=== PATIENT | female | born 1935 | race Caucasian/White ===

== ENCOUNTER 2016-06-28 13:10 | Outpatient (CLI) | payer OTHER, BC ==
[~2016-06-28 13:10] MED LIST: COUMADIN1 MG PO; DONEPEZIL HCL5 M1 PO; LORAZEPAM1 MG PO; LOVENOX100 MG/ML SC; LOVENOX40 MG/0.4 SC; MULTIPLE VITAMIN PO; NORCO1 TA1 PO; OMEPRAZOLE20 M1 PO; PAROXETINE HCL10 MG PO; PRINIVIL5 MG PO; SIMVASTATIN20 MG PO; VICODIN EQUIVAL1 TAB PO
--- NOTE | 2016-06-28 13:56 | DIAGNOSTIC IMAGING REPORT ---
PROCEDURE: CT LUMBAR SPINE W/O CONTRAST INDICATION: LUMABAR RADICULOPATHY L-5, initial encounter TECHNIQUE: Noncontrast axial images with sagittal and coronal reformations. COMPARISON: Lumbar spine x-ray 02/09/2016 FINDINGS: Osteopenia. L4-5 and L5-S1 laminectomies. Partially sacralized L5. Normal alignment without acute fracture. Left L4 inferior 1.2 x 2.3 cm bony protrusion with corresponding erosion of the left L5 superior vertebral body resulting in severe degenerative changes. There are also severe L3-4 degenerative changes. There is a 50% central L4 chronic compression fracture. Left SI joint degenerative changes. Surgical clips in the right lower quadrant. L1-2: Normal disc. Mild facet arthropathy. L2-3: Mild disc space narrowing with moderate circumferential disc protrusion, moderate facet arthropathy and thickening of the ligament flava. There is mild right and moderate left foraminal stenosis. There is also moderate spinal stenosis. L3-4: Severe disc space narrowing with a large broad-based disc protrusion/spur complex and moderate facet arthropathy. There is thickening of the ligament flava. There is bilateral moderately severe foraminal stenosis and severe spinal stenosis. L4-5: Laminectomy. Severe space narrowing with mild broad-based disc bulge/spur complex and mild facet arthropathy. There is resulting moderate bilateral foraminal stenosis. There is no spinal stenosis. L5-S1: Left laminectomy. Normal disc and mild facet arthropathy. Moderate bilateral foraminal stenosis secondary to bony encroachment. No spinal stenosis. IMPRESSION: 1. Severe disc and vertebral degenerative changes most prominent at L3-4 and L4-5 2. Partially sacralized L5 with L4-5 and L5 laminectomies 3. Moderate L2-3 and severe L3-4 spinal stenosis 4. L2-3 disc protrusion with mild right and moderate left foraminal stenosis 5. Large L3-4 disc protrusion with bilateral moderately severe foraminal stenosis 6. Mild L4-5 disc bulge with moderate bilateral foraminal stenosis 7. Moderate bilateral foraminal stenosis secondary to bony encroachment moderate 8. Chronic 50% central L4 compression fracture 9. Left SI joint degenerative changes All CT scans at this facility use dose modulation, iterative reconstruction, and/or weight-based dosing when appropriate to reduce radiation dose to as low as reasonably achievable.
== END 2016-06-28 23:00 ==
LOC: CT SRH 13:10
DX: M51.36 Other intervertebral disc degeneration, lumbar region (principal); M48.06 Spinal stenosis, lumbar region; M47.816 Spondylosis without myelopathy or radiculopathy, lumbar region; S32.040S Wedge compression fracture of fourth lumbar vertebra, sequela; Z98.1 Arthrodesis status

== ENCOUNTER 2016-09-09 11:01 | Emergency (ER) | payer OTHER, BC ==
--- NOTE | 2016-09-09 13:12 | DIAGNOSTIC IMAGING REPORT ---
PROCEDURE: XR RIBS UNILAT W/PA CHEST-LT INDICATION: FALL TECHNIQUE: Two views of the left ribs with single PA view chest. COMPARISON: None. FINDINGS: LEFT RIBS: No displaced rib fractures. No suspicious rib lesions. CHEST: Normal cardiomediastinal contour. Clear lungs without pleural effusion, pneumothorax, or contusion. The other visible osseous structures are intact. IMPRESSION: 1. Intact left ribs. 2. Normal chest without radiographic evidence of trauma.
--- NOTE | 2016-09-09 13:12 | ED CLINICAL REPORT ---
Clinical Report - Physicians/Mid Levels [facility] [address] [place] [address] 09/09/2016 11:01 Patient: NICHOLAS KNOWLES Time Seen: 11:44. Arrived- By ambulance. Historian- patient and EMS personnel. HISTORY OF PRESENT ILLNESS Chief Complaint: FALL. Location of injuries- left hip. The injury occurred unknown time/date; daughter states she does not believe the pt had a fall, and that pt has a h/o chronic L hip pain. Fell. Occurred at home. The patient complains of moderate pain. No blow to the head, neck pain, loss of consciousness or seizure. Not dazed. REVIEW OF SYSTEMS The patient complains of pain on weight bearing. (chronically). No numbness, dizziness, loss of vision, hearing loss or chest pain. No difficulty breathing, weakness, headache, nausea or abdominal pain. No laceration, fever, vomiting or urinary problems. All systems otherwise negative, except as recorded above. PAST HISTORY Problems: DVT - Deep Venous Thrombosis. Fall. Gastroesophageal Reflux. LNMP - Last Normal Menstrual Period. Dementia. Hyperlipidemia. Dislocated Hip. Tetanus Status. Immunizations. Hypertension. Depression. Chronic L hip pain. Anxiety Reaction. Cancer. Additional Surgeries: Back Surgery. Left hip replacement. Neck Surgery. Port-a-Cath placement. R hip replacement. Medications: Donepezil 10 mg q.h.s.. Donepezil HCl Oral (Tablet 5 mg) 2 tablets, daily. Hydrocodone-Acetaminophen Oral. Lisinopril 5 mg daily. Lisinopril Oral (Tablet 5 mg) 1 tablet, daily. Lorazepam 1 mg bid. LORazepam Oral 1 mg, 2x a day. Lovenox Subcutaneous. Multi Vitamin Daily Oral. Multivitamin 1 tablet daily. Omeprazole 20 mg 1 cap daily. Omeprazole Oral 20 mg, daily. Paroxetine 40 mg daily. PARoxetine HCl Oral (Tablet 40 mg) 1 tablet. Simvastatin Oral 20 mg, at bedtime. Smvastatin 20 mg daily. Warfarin Sodium Oral. Allergies: No Known Drug Allergy. SOCIAL HISTORY Never smoker. No alcohol use or drug use. ADDITIONAL NOTES The nursing notes have been reviewed. PHYSICAL EXAM Vital Signs: 09/09/2016 11:05 BP: 120/63. HR: 48. RR: 22. O2 saturation: 99%. Temp: 97.8 F. Pain level now: 03/18. Have been reviewed. Appearance: Alert. No acute distress. Head: Head non-tender. No swelling of head. Eyes: Pupils equal, round and reactive to light. EOM intact. ENT: No dental injury. Neck: Painless ROM. Non-tender. CVS: Heart sounds normal. Pulses normal. Respiratory: No respiratory distress. Chest wall: mild tenderness located in the middle, lower, left and lateral chest. No erythema, puncture wound, foreign body or deformity. No swelling. No laceration. No abrasion. No ecchymosis. No splinting present. No paradoxical movement. Breath sounds normal. Chest nontender. Abdomen: No visible injury. Soft and nontender. Back: No tenderness. Skin: Skin intact. Skin warm and dry. Normal skin color. Normal skin turgor. Extremities: Pelvis stable. Left hip: mild tenderness located in the lateral aspect of the hip. Neurovascular intact distally. No erythema, swelling, laceration, abrasion or ecchymosis. No puncture wound, foreign body or deformity. No limitation in ROM. The left leg is not shortened, externally rotated, internally rotated, flexed or adducted. The left leg is not abducted. No lower extremity edema. Neuro: No motor deficit. No sensory deficit. (Pt answers questions appropriately.). LABS, X-RAYS, AND EKG Sternum / Ribs X-rays: No fracture present. Normal lung markings present. Soft tissues normal. No bony lesion present. Views: left ribs. AP of chest. Technique: good. The X-rays were independently viewed by me, interpreted by the radiologist and contemporaneously by me and discussed with the radiologist. Prior films were not available for comparison. Lt Hip X-ray: No fracture. Normal alignment. No bony lesion, air in the soft tissue or foreign body. Soft tissues normal. Joint spaces normal. (Pt has a L hip prosthesis, which appears in good placement.). Views: 2 view hip series. Technique: good. The X-rays were independently viewed by me, interpreted by the radiologist and contemporaneously by me and discussed with the radiologist. Prior films were not available for comparison. Pulse Oximetry: 09/09/2016 11:05 O2 saturation: 99%. (FIO2 - room air). Interpretation: normal. PROGRESS AND PROCEDURES Course of Care: Pt was given a dose of Toradol, and worked up with x-rays of the L ribs and hip, as well as the pelvis. No acute traumatic changes were noted. No emergent condition identified. Patient counseled in person regarding the patient's stable condition, test results, diagnosis and need for follow-up. Concerns were addressed. Old medical records reviewed. Disposition: Discharged. Condition: stable. CLINICAL IMPRESSION Multiple contusions to the left chest and left hip. INSTRUCTIONS Warnings: GENERAL WARNINGS: Return or contact your physician immediately if your condition worsens or changes unexpectedly, if not improving as expected, or if other problems arise. Your Current Medications: CONTINUE TAKING THE FOLLOWING MEDICATIONS: Donepezil 10 mg q.h.s.*. Donepezil HCl Oral : Tablet 5 mg, 2 tablets daily. Hydrocodone-Acetaminophen Oral. Lisinopril 5 mg daily*. Lisinopril Oral : Tablet 5 mg, 1 tablet daily. Lorazepam 1 mg bid*. LORazepam Oral : 1 mg 2x a day. Lovenox Subcutaneous. Multi Vitamin Daily Oral. Multivitamin 1 tablet daily*. Omeprazole 20 mg 1 cap daily*. Omeprazole Oral : 20 mg daily. Paroxetine 40 mg daily*. PARoxetine HCl Oral : Tablet 40 mg, 1 tablet. Simvastatin Oral : 20 mg at bedtime. Smvastatin 20 mg daily*. Warfarin Sodium Oral. Prescription Medications: Tylenol with Codeine Tylenol #3 (30 mg / 300 mg) : take 1 tablet orally every 4 hours. Dispense fifteen (15). No refill. Substitution is permissible. Follow-up: Follow up with your doctor as needed. Understanding of the discharge instructions verbalized by patient. (Electronically signed by Lindsey Rudolph MD 09/18/2016 21:32)
--- NOTE | 2016-09-09 13:12 | ED NURSING NOTES ---
Clinical Report - Nurses [facility] [address] [place] [address] 09/09/2016 11:01 Patient: NICHOLAS KNOWLES TRIAGE Triage time 1105. Acuity: LEVEL 3. Chief Complaint: FALL (left hip pain). 11:05. GASTON COMA SCORE: Gaston Coma Scale. (refusing to answer questions). --11:24 Mel Caceres R.N. 11:05 09/09/16. BP: 120/63. HR: 48. RR: 22. O2 saturation: 99%. Temp: 97.8 F. Pain level now: 03/18. Additional comments: left hip. --11:24 Mel Caceres R.N. Weight: 49.8 kg stated. Height/Length: 61.5 inches Per Patient. BMI: 20.4. --11:15 Mel Caceres R.N. Medications Donepezil 10 mg q.h.s.. Donepezil HCl Oral (Tablet 5 mg) 2 tablets, daily. Hydrocodone-Acetaminophen Oral. Lisinopril 5 mg daily. Lisinopril Oral (Tablet 5 mg) 1 tablet, daily. Lorazepam 1 mg bid. LORazepam Oral 1 mg, 2x a day. Lovenox Subcutaneous. Multi Vitamin Daily Oral. Multivitamin 1 tablet daily. Omeprazole 20 mg 1 cap daily. Omeprazole Oral 20 mg, daily. Paroxetine 40 mg daily. PARoxetine HCl Oral (Tablet 40 mg) 1 tablet. Simvastatin Oral 20 mg, at bedtime. Smvastatin 20 mg daily. Warfarin Sodium Oral. --11:16 Mel Caceres R.N. Allergies No Known Drug Allergy. --11:16 Mel Caceres R.N. History Arrived by EMS. Historian: patient. ( EMS brought pt in with report that she fell this am, c/o left hip pain). This occurred last night. She has had extremity pain and trouble walking. Limited ROM present. ( pt states she fell on her left hip "the walker fell off the edge of the cement into the sand "). No loss of consciousness. No alteration in mental status. --11:24 Mel Caceres R.N. PROBLEMS: DVT - Deep Venous Thrombosis. Prior Injury, Same Area. Fall. Gastroesophageal Reflux. Bradycardia. Dementia. Hyperlipidemia. Dislocated Hip. Hypertension. Depression. Chronic L hip pain. Anxiety Reaction. Cancer. --11: Mel Caceres R.N. ADDITIONAL SURGERIES: Back Surgery. Left hip replacement. Neck Surgery. --11: Mel Caceres R.N. Interventions ID band on patient. To treatment room. --11:24 Mel Caceres R.N. PHYSICAL ASSESSMENT 11:05. To room via stretcher. Patient gowned. GENERAL / NEURO / PSYCH: Alert. Oriented X 4. Appears in pain and anxious. HEENT: Head non-tender. RESPIRATORY: Respirations not labored. Chest wall: tenderness (left rib area T-5-9). CVS: ( naila 48-56 range). Capillary refill less than 2 seconds. GI / : Abdomen soft. ( pt has multiple bruises and abrasions in various states of healing, Pt admits that she "falls all the time"). EXTREMITIES: Left hip: tenderness. ( pt c/o left hip pain and pain "all down the left side"). SKIN: Skin is warm and dry. --11:31 Mel Caceres R.N. NURSING PROGRESS NOTES 11:05. Cold pack applied. Patient gowned. Patient identifiers checked. Call light placed in reach. Side rails up. Bed placed in lowest position. Patient ready for evaluation- chart flagged. --11:25 Mel Caceres R.N. 11:22. ( daughter here to see pt. daughter states that pt has had bilateral hip replacements and "that hardware doesn't move" took pt pants off for x-ray, she lifted her bottom off of stretcher while talking with daughter). --11:28 Mel Caceres R.N. 11:25. Patient transported to radiology by stretcher with tech. --11:28 Mel Caceres R.N. 11:40. Patient returned from radiology by stretcher with tech. --12:05 Mel Caceres R.N. 12:00 09/09/16. BP: 118/64. HR: 56. RR: 20. O2 saturation: 100%. Temp: deferred. Pain level now: 02/16. Additional comments: pt states she is really hungry and wants coffee. --12:32 Mel Caceres R.N. 12:30 pt standing at bedside, states "I'm really hungry and need to get something to eat" pt assisted back to bed, and given coffee, soup and pudding per ERMD. --12:50 Mel Caceres R.N. 13:00 09/09/16. BP: 105/34. HR: 52. RR: 18. O2 saturation: 100%. Temp: deferred. Pain level now: 02/16. Additional comments: pt given sandwich, very anxious/ready to go home . --13:09 Mel Caceres R.N. ( Pt. given sandwich and jello.). --13:11 Elena Reyes, Tech 13:17 09/09/2016 Toradol (Ketorolac Tromethamine) IM 60 mg given. Given in the right ventral gluteus. --13:27 Mel Caceres R.N. 13:20. ( pt given IM pain meds and assisted with dressing. pt c/o pain to hip, but ambulating well and weight bearing well. - waiting on daughter to pick her up). --13:28 Mel Caceres R.N. 13:30. ( Pt up walking in [place], pushing w/c I had waiting outside her room. states she "got lost" waiting for her daughter. Took pt to waiting room, and daughter just arrived. took pt to car-). --14:28 Mel Caceres R.N. DISPOSITION / DISCHARGE Condition at departure: improved and stable. Ability to learn limited by dementia. Discharge instructions provided and reviewed with the patient (daughter). Reviewed medication(s) (Tylenol #3 , motrin). Treatments reviewed (ice, up with assistance). Patient and family verbalized understanding. Written instructions provided in Serbian. The patient was discharged home and accompanied by family. She left the Emergency Department in a wheelchair and via private vehicle. Driving (daughter). --13:30 Mel Caceres R.N. 13:29 09/09/16. BP: 110/54. HR: 56. RR: 18. O2 saturation: 100%. Temp: deferred. Pain level now: 02/16. --13:30 Mel Caceres R.N. Departure time: 1335. --14:28 Mel Caceres R.N. Locked/Released at 09/09/2016 14:32 by Mel Caceres R.N.
--- NOTE | 2016-09-09 13:12 | ED ORDER SUMMARY ---
..... Patient: NICHOLAS KNOWLES OrderSheet [facility] VisitID: [id number] [address] [place] [address] 81y, F Registration Date/Time: 09/09/2016 ORDER SHEET Weight: 49.8 kg (stated) Allergies: No Known Drug Allergy GENERAL ORDERS: Ribs Unilat w PA Chest Left Urgent (11:21 09/09/2016 DDean R.N. verbal order read back to Sara CLINTON) (Ack 11:25 CASTILLOoerner) (11:42 KHoerner) Hip 2V Left w AP Pelvis Urgent (11:09/09/2016 DDean R.N. verbal order read back to Sara CLINTON) (Ack 11:25 CASTILLOoeremily) (11:42 KHoerner) MEDICATION ORDERS: Toradol IM 60 mg (NOW) (13:11 09/09/2016 Sara CLINTON) (13:27 DDean R.N.) IV FLUIDS: ORDER SHEET NOTES: [Electronically signed by Mel Caceres R.N. (14:32 09/09/2016)] [Electronically signed by Lindsey Rudolph MD (21:32 09/18/2016)] [Electronically locked/signed by Mel Caceres R.N. (14:32 09/09/2016)]
--- NOTE | 2016-09-09 13:12 | ED ORDER SUMMARY ---
..... Patient: NICHOLAS KNOWLES OrderSheet [facility] VisitID: [id number] [address] [place] [address] 81y, F Registration Date/Time: 09/09/2016 ORDER SHEET Weight: 49.8 kg (stated) Allergies: No Known Drug Allergy GENERAL ORDERS: Ribs Unilat w PA Chest Left Urgent (11:21 09/09/2016 DDean R.N. verbal order read back to Sara CLINTON) (Ack 11:25 CASTILLOoerner) (11:42 KHoerner) Hip 2V Left w AP Pelvis Urgent (11:09/09/2016 DDean R.N. verbal order read back to Sara CLINTON) (Ack 11:25 CASTILLOoeremily) (11:42 KHoerner) MEDICATION ORDERS: Toradol IM 60 mg (NOW) (13:11 09/09/2016 Sara CLINTON) (13:27 DDean R.N.) IV FLUIDS: ORDER SHEET NOTES: [Electronically signed by Mel Caceres R.N. (14:32 09/09/2016)] [Electronically signed by Lindsey Rudolph MD (21:32 09/18/2016)] [Electronically locked/signed by Mel Caceres R.N. (14:32 09/09/2016)]
--- NOTE | 2016-09-09 13:15 | DIAGNOSTIC IMAGING REPORT ---
PROCEDURE: XR HIP 2VW W W/O AP PELVIS-LT INDICATION: PAIN TECHNIQUE: AP view of the pelvis and hips with lateral view of the left hip. COMPARISON: Pelvis and hip dated 06/05/2016 FINDINGS: LEFT HIP: Left hip arthroplasty with anatomic positioning. Stable left acetabular ORIF and left acetabular . No evidence of fracture or dislocation. PELVIS: Stable right hip arthroplasty. No suspicious osseous lesions. Moderate degenerative changes of the lumbar spine. Surgical changes in the right lower quadrant and over the symphysis pubis. IMPRESSION: 1. Stable bilateral hip arthroplasties with anatomic position and 2. Stable left acetabulum protrusion with left acetabular ORIF
--- NOTE | 2016-09-18 21:33 | ED MAR SUMMARY ---
..... Medication Administration Record [facility] [address] [place] [address] Patient: NICHOLAS KNOWLES Visit ID: [id number] 81y, F Weight: 49.8 kg Height/Length: 61.5 in BMI: 20.4 ALLERGIES: No Known Drug Allergy Given 13:17 09/09/2016 MorrisMel RDulce Maria. Medication Administered: TORADOL [IM] (KETOROLAC TROMETHAMINE), Dose: 60 mg IM. Medication Ordered: Toradol IM 60 mg (NOW).
--- NOTE | 2016-09-18 21:33 | ED MAR SUMMARY ---
..... Medication Administration Record [facility] [address] [place] [address] Patient: NICHOLAS KNOWLES Visit ID: [id number] 81y, F Weight: 49.8 kg Height/Length: 61.5 in BMI: 20.4 ALLERGIES: No Known Drug Allergy Given 13:17 09/09/2016 MorrisMel RDulce Maria. Medication Administered: TORADOL [IM] (KETOROLAC TROMETHAMINE), Dose: 60 mg IM. Medication Ordered: Toradol IM 60 mg (NOW).
--- NOTE | 2016-09-18 21:33 | ED DISCHARGE INSTRUCTIONS ---
Patient: NICHOLAS KNOWLES General Instructions [facility] VisitID: [id number] [place] [address] 81y, F Registration Date/Time: 09/09/2016 Multiple contusions to the left chest and left hip. INSTRUCTIONS Warnings: GENERAL WARNINGS: Return or contact your physician immediately if your condition worsens or changes unexpectedly, if not improving as expected, or if other problems arise. Your Current Medications: CONTINUE TAKING THE FOLLOWING MEDICATIONS: Donepezil 10 mg q.h.s.*. Donepezil HCl Oral : Tablet 5 mg, 2 tablets daily. Hydrocodone-Acetaminophen Oral. Lisinopril 5 mg daily*. Lisinopril Oral : Tablet 5 mg, 1 tablet daily. Lorazepam 1 mg bid*. LORazepam Oral : 1 mg 2x a day. Lovenox Subcutaneous. Multi Vitamin Daily Oral. Multivitamin 1 tablet daily*. Omeprazole 20 mg 1 cap daily*. Omeprazole Oral : 20 mg daily. Paroxetine 40 mg daily*. PARoxetine HCl Oral : Tablet 40 mg, 1 tablet. Simvastatin Oral : 20 mg at bedtime. Smvastatin 20 mg daily*. Warfarin Sodium Oral. Prescription Medications: Tylenol with Codeine Tylenol #3 (30 mg / 300 mg) : take 1 tablet orally every 4 hours. Dispense fifteen (15). No refill. Substitution is permissible. Follow-up: Follow up with your doctor as needed. Understanding of the discharge instructions verbalized by patient. ADDITIONAL INFORMATION Hip Contusion You have a contusion of the hip. This is a bruise with swelling and some bleeding under the skin. There are no fracture (broken bone) seen on the x-ray. This injury takes a few days to a few weeks to heal. Home Care If walking causes pain, use crutches or a walker until you can walk without pain. These items can be rented at most pharmacies and orthopedic supply stores. Apply an ice pack (ice cubes in a plastic bag, wrapped in a towel) over the injured area for 20 minutes every 1-2 hours the firstday. You should continue with ice packs 3-4 times a day for the next two days. Continue the use of ice packs for relief of pain and swelling as needed. You may use acetaminophen (Tylenol) or ibuprofen (Motrin, Advil) to control pain, unless another pain medicine was prescribed. [NOTE: If you have chronic liver or kidney disease or ever had a stomach ulcer or GI bleeding, talk with your doctor before using these medicines.] If you are not able to get to the bathroom easily or take care of your meal preparation, home health care may be available to provide in-home nursing services. Check with your doctor, the hospital's social service department or through private nursing agencies to see if your insurance will cover this kind of care. Follow Up Follow up with your doctor or as advised by our staff if your symptoms do not begin to improve after one week. A repeat x-ray or a CT-scan may be needed to check again for a fracture. [NOTE: If X-rays were taken, they will be reviewed by a radiologist. You will be notified of any new findings that may affect your care.] Get Prompt Medical Attention Get prompt medical attention if any of the following occur: Increased swelling or increased bruising Pain becomes worse Decreased ability to bear weight on the injured side Swelling or pain below your knee Chest pain or shortness of breath You have been given the following additional information: Hip Contusion (Electronically signed by Lindsey Rudolph MD 09/18/2016 21:32)
--- NOTE | 2016-09-18 21:33 | ED MED RECONCILIATION SUMMARY ---
Patient: NICHOLAS KNOWLES Medication Reconciliation Report [facility] VisitID: [id number] [address] [place] [address] 81y, F Registration Date/Time: 09/09/2016 Weight: 49.8 kg Height/Length: (not available) BMI: 20.4 ALLERGIES: No Known Drug Allergy The patient's Home Medications are listed below: CONTINUE TAKING THE FOLLOWING MEDICATIONS: Donepezil 10 mg q.h.s. Donepezil HCl Oral (5 mg) 2 tablets, daily Hydrocodone-Acetaminophen Oral Lisinopril 5 mg daily Lisinopril Oral (5 mg) 1 tablet, daily Lorazepam 1 mg bid LORazepam Oral 1 mg, 2x a day Lovenox Subcutaneous Multi Vitamin Daily Oral Multivitamin 1 tablet daily Omeprazole 20 mg 1 cap daily Omeprazole Oral 20 mg, daily Paroxetine 40 mg daily PARoxetine HCl Oral (40 mg) 1 tablet Simvastatin Oral 20 mg, at bedtime Smvastatin 20 mg daily Warfarin Sodium Oral The source(s) of the original Home Medication information: Not obtained. The following Medications were given to the patient in the Emergency Department: Toradol [IM] IM 60 mg, administered: 09/09/2016 1:17:00 PM The following Medications were prescribed to the patient: Tylenol with Codeine Tylenol #3 (30 mg / 300 mg) : take 1 tablet orally every 4 hours. Dispense fifteen (15). No refill. Substitution is permissible. -- Lindsey Rudolph MD
--- NOTE | 2016-09-18 21:33 | ED MED RECONCILIATION SUMMARY ---
Patient: INCHOLAS KNOWLES Medication Reconciliation Report [facility] VisitID: [id number] [address] [place] [address] 81y, F Registration Date/Time: 09/09/2016 Weight: 49.8 kg Height/Length: (not available) BMI: 20.4 ALLERGIES: No Known Drug Allergy The patient's Home Medications are listed below: CONTINUE TAKING THE FOLLOWING MEDICATIONS: Donepezil 10 mg q.h.s. Donepezil HCl Oral (5 mg) 2 tablets, daily Hydrocodone-Acetaminophen Oral Lisinopril 5 mg daily Lisinopril Oral (5 mg) 1 tablet, daily Lorazepam 1 mg bid LORazepam Oral 1 mg, 2x a day Lovenox Subcutaneous Multi Vitamin Daily Oral Multivitamin 1 tablet daily Omeprazole 20 mg 1 cap daily Omeprazole Oral 20 mg, daily Paroxetine 40 mg daily PARoxetine HCl Oral (40 mg) 1 tablet Simvastatin Oral 20 mg, at bedtime Smvastatin 20 mg daily Warfarin Sodium Oral The source(s) of the original Home Medication information: Not obtained. The following Medications were given to the patient in the Emergency Department: Toradol [IM] IM 60 mg, administered: 09/09/2016 1:17:00 PM The following Medications were prescribed to the patient: Tylenol with Codeine Tylenol #3 (30 mg / 300 mg) : take 1 tablet orally every 4 hours. Dispense fifteen (15). No refill. Substitution is permissible. -- Lindsey Rudolph MD
== END 2016-09-09 13:35 | disposition home or self-care (01) ==
LOC: ED SRH 11:01
DX: S70.02XA Contusion of left hip, initial encounter (principal); S20.212A Contusion of left front wall of thorax, initial encounter; W19.XXXA Unspecified fall, initial encounter; Y93.9 Activity, unspecified; Y92.9 Unspecified place or not applicable; Y99.9 Unspecified external cause status; I10 Essential (primary) hypertension; F03.90 Unspecified dementia, unspecified severity, without behavioral disturbance, psychotic disturbance, mood disturbance, and anxiety; Z79.01 Long term (current) use of anticoagulants; Z79.899 Other long term (current) drug therapy

== ENCOUNTER 2016-09-20 15:49 | Emergency (ER) | payer OTHER, BC ==
--- NOTE | 2016-09-20 17:14 | DIAGNOSTIC IMAGING REPORT ---
PROCEDURE: XR HIP 2VW W W/O AP PELVIS-LT INDICATION: TRAUMA/INJURY TECHNIQUE: AP view of the pelvis and hips with lateral view of the left hip. COMPARISON: Pelvis and hip 09/09/2016 FINDINGS: LEFT HIP: Left hip arthroplasty with anatomic positioning. Stable left acetabular ORIF and left acetabular . No evidence of fracture or dislocation. PELVIS: Stable right hip arthroplasty. No suspicious osseous lesions. Moderate degenerative changes of the lumbar spine. Surgical changes in the right lower quadrant and over the symphysis pubis. IMPRESSION: 1. Stable bilateral hip arthroplasties with anatomic position and 2. Stable left acetabulum protrusion with left acetabular ORIF 3. No fracture or dislocation.
--- NOTE | 2016-09-20 17:56 | DIAGNOSTIC IMAGING REPORT ---
PROCEDURE: XR FOREARM - LEFT INDICATION: TRAUMA/INJURY TECHNIQUE: AP and lateral views. COMPARISON: None. FINDINGS: Osseous structures are normal. IMPRESSION: 1. Normal left forearm.
--- NOTE | 2016-09-20 17:56 | DIAGNOSTIC IMAGING REPORT ---
PROCEDURE: XR FOREARM - LEFT INDICATION: TRAUMA/INJURY TECHNIQUE: AP and lateral views. COMPARISON: None. FINDINGS: Osseous structures are normal. IMPRESSION: 1. Normal left forearm.
--- NOTE | 2016-09-20 18:57 | DIAGNOSTIC IMAGING REPORT ---
PROCEDURE: CT LUMBAR SPINE W/O CONTRAST INDICATION: TRAUMA/INJURY fall 1 week ago, chronic pain. TECHNIQUE: Thin slice axial CT images were obtained through the lumbar spine. Coronal and sagittal reformations were created. COMPARISON: 06/28/2016 FINDINGS: Diffuse osteopenia and degenerative sclerosis scattered throughout the lumbar spine, most extensive in the lower lumbar spine. Partial sacralization of L5 with the left transverse process fused. No acute fractures. Straightening of the normal lumbar lordosis with trace chronic retrolisthesis of L3. 50% central superior endplate compression fracture of L4 with mixed subcortical cystic and sclerotic endplate changes at the L3-4 level with a large endplate spurs. No change. Downward osseous protrusion of the left L4 vertebra scalloping of the superior L5 margin, chronic. Severe L3-4 disc height loss. Asymmetric L4-5 disc height loss with calcification of the right aspect of the disc. Moderate multilevel facet arthropathy beginning at the L2-3 level. Mild to significant facet spurring, more extensive on the left at L3-4 and L4-5. Posterior laminectomy changes at L4 and L5. Incidental note made of moderately severe disc space loss and endplate irregularity at T9-10 and moderate posterior spurring and T10-11. Moderately severe right foraminal narrowing, not previously imaged. L1-2: Mild facet arthropathy, chronic. L2-3: Diffuse disc bulge, moderate facet arthropathy, partially calcified ligamentum flavum, and chronic central canal stenosis. Mild right and moderate left foraminal narrowing. L3-4: Severe central canal stenosis, chronic. This is due to moderate facet arthropathy, disc bulge, and ligamentum flavum hypertrophy. Bilateral foraminal narrowing, left worse than right. Stable compared to prior. L4-5: Laminectomy and the leftward disc osteophyte complex, unchanged. Mild right and moderate left foraminal narrowing, no change. No central canal narrowing. L5-S1: Moderate facet arthropathy and disc osteophyte. Left hemilaminectomy. No change to mild foraminal narrowing. Partially imaged left hip arthroplasty. No evidence of sacral fracture, although the bones are severely demineralized and one could be overlooked. No suspicious densities in the central canal. Small bilateral low-density adrenal lesions, likely benign adenomas. IMPRESSION: 1. No acute fracture visible. If there is continued concern, MR or bone scan is suggested. 2. Chronic, severe disc and endplate degeneration at L3-4 and L4-5. 3. Chronic 50% L4 compression fracture. 4. Chronic multilevel foraminal and central canal narrowing without change. 5. Findings called to the emergency room.
--- NOTE | 2016-09-20 19:01 | DIAGNOSTIC IMAGING REPORT ---
PROCEDURE: XR LUMBAR SPINE 2 OR 3 VIEWS INDICATION: TRAUMA/INJURY TECHNIQUE: Three views of the lumbar spine COMPARISON: 02/09/[address] 06/28/2016 FINDINGS: Mild diffuse demineralization and bowel gas precludes good evaluation of the lower lumbar spine. Five lumbar-type vertebral bodies are present. There is partial sacralization on the left of L5. There is a downward osseous excrescence arising from L4 into the left aspect of the L5 vertebral body, chronic. Chronic-appearing compression fracture of L4 with sclerosis of the superior endplate and large anterior spurs. No definite compression fracture visible. Straightening of the normal lumbar mild right curvature. Severe disc height loss at L3-4 and L4-5. Moderate calcific atherosclerosis. Surgical clips in the right lower quadrant of the pelvis. Bilateral hip arthroplasties. Irregular sclerotic change of the left superior acetabulum. IMPRESSION: 1. Moderately severe degenerative disc, and endplate changes in the lower lumbar spine. 2. Suboptimal visualization of L5. CT has been performed. 3. Demineralization.
--- NOTE | 2016-09-20 19:51 | ED NURSING NOTES ---
Clinical Report - Nurses [facility] [address] [place] [address] 09/20/2016 15:51 Patient: NICHOLAS KNOWLES TRIAGE Triage time 15:55. Acuity: LEVEL 3. Chief Complaint: INJURY TO THE LEFT HIP. Alert. No acute distress. --16:01 Amari Rodriguez R.N. 15:54 09/20/16. BP: 122/70. HR: 57. RR: 20. O2 saturation: 98%. Temp: 98 F. Pain level now 03/18. --16:01 Amari Rodriguez R.N. Weight: 49.8 kg stated. Height/Length: 62 inches Per Patient. BMI: 20.1. --15:58 Amari Rodriguez R.N. Medications Donepezil 10 mg q.h.s.. Donepezil HCl Oral (Tablet 5 mg) 2 tablets, daily. Hydrocodone-Acetaminophen Oral. Lisinopril 5 mg daily. Lisinopril Oral (Tablet 5 mg) 1 tablet, daily. Lorazepam 1 mg bid. LORazepam Oral 1 mg, 2x a day. Lovenox Subcutaneous. Multi Vitamin Daily Oral. Multivitamin 1 tablet daily. Omeprazole 20 mg 1 cap daily. Omeprazole Oral 20 mg, daily. Paroxetine 40 mg daily. PARoxetine HCl Oral (Tablet 40 mg) 1 tablet. Simvastatin Oral 20 mg, at bedtime. Smvastatin 20 mg daily. --15:56 Amari Rodriguez R.N. Warfarin Sodium Oral. --15:56 Amari Rodriguez R.N. MS Contin Oral, 2x a day. --17:10 Amari Rodriguez R.N. OxyCODONE HCl ER Oral, prn. --17:11 Amari Rodriguez R.N. Allergies No Known Drug Allergy. --15:56 Amari Rodriguez R.N. History Arrived by EMS. Historian: patient. This occurred yesterday. ( Patient with confusing story about a recent fall and hip pain. Was seen here on 4/3 for hip pain after a fall. Patient states yes this was the fall that is causing her pain. Patient appears to have good range of motion and removed her jeans unassisted, but is nearly hysterical asking for someone to please help here with her pain.). SOCIAL HX: Light tobacco smoker- less than 1/2 a pack per day. No alcohol use or drug use. --16:01 Amari Rodriguez R.N. Interventions ID band on patient. --16:01 Amari Rodriguez R.N. PHYSICAL ASSESSMENT GENERAL / NEURO / PSYCH: Oriented X 4. Appears in pain, anxious and in distress. EXTREMITIES: Capillary refill is less than 2 seconds in the extremities. Extremity pulses are within normal limits. Extremities exhibit normal ROM. Neuro-vascular status intact to the extremity. Left hip. SKIN: Skin is warm and dry. --16:02 Amari Rodriguez R.N. GENERAL / NEURO / PSYCH: Alert. Appears anxious. ( Patient is ambulating around room). --19:19 Navid Pride R.N. 19:17 09/20/16. BP: 140/54. HR: 61. RR: 20. O2 saturation: 96% on room air. Pain level now: 10/10. Additional comments: Left hip. pt states having pain for "5 days". --19:19 Navid Pride R.N. NURSING PROGRESS NOTES Call light placed in reach. Side rails up x 2. Bed placed in lowest position. --16:03 Amari Rodriguez R.N. 17:00. Patient transported to radiology by stretcher with tech. --17:08 Amari Rodriguez R.N. Patient returned from radiology by stretcher with tech. --17:08 Amari Rodriguez R.N. ( Patient's daughter is here now and is quite knowledgeable about her mother's medical history. States patient has compression fractures in back and with her severe dementia, the patient thinks that any pain she has is from her hip.). --17:09 Amari Rodriguez R.N. ( Pt repeatedly walking up and down the hallway, asking for nurse and stating that she wants to go home and that she is "starving". Pt given sandwich, cheese, and non-fat milk. Pt calms down once food is provided.). --18:54 Marleny Morrissey R.N. 18:58 09/20/2016 Toradol (Ketorolac Tromethamine) IM 60 mg given. Given in the left ventral gluteus. Allergies verified and confirmed 5 rights. --18:58 Jessica Girard R.N. ( Report recieved from Amari Carrasco at 1910). --19:19 Navid Pride R.N. 19:48 09/20/2016 Dilaudid (HYDROmorphone HCl PF) IM 1 mg given. Given in the right gluteus edi. --19:48 Amari Rodriguez R.N. 19:48 09/20/2016 Ativan (LORazepam) IM 0.5 mg given. Given in the right gluteus edi. --19:48 Amari Rodriguez R.N. <<STRICKEN ENTRY-- 19:52 09/20/2016 Site #1 started via IV in the left hand with an 20g angiocath, with aseptic technique; two attempts. Blood drawn. Saline lock flushed with 10 mL saline (Started by RL Blood (mine engineering supervisor)). --19:53 Navid Pride R.N. --END STRIKE>> Charted on wrong patient. --19:53 Navid Pride R.N. ( 1954 - Report given back to Donna Rodriguez RN (he has returned from his lunch break).). --19:58 Navid Pride R.N. 20:01 09/20/2016 Dilaudid IM Response: pain is improving. --20:01 Amari Rodriguez R.N. 20:02 09/20/2016 Ativan IM Response: pain is improving. --20:02 Amari Rodriguez R.N. 20:02 09/20/2016 Toradol IM Response: symptoms are the same. --20:02 Amari Rodriguez R.N. DISPOSITION / DISCHARGE Condition at departure: improved. No learning barriers present. Discharge instructions provided and reviewed with the patient and family. Patient and family verbalized understanding. Written instructions provided in Lithuanian. The patient was discharged by the physician. She was discharged home and accompanied by family. She left the Emergency Department ambulatory and via private vehicle. --20:01 Amari Rodriguez R.N. 20:00 09/20/16. BP: 122/62. HR: 80. RR: 20. O2 saturation: 96%. Temp: 98 F. Pain level now 12/16. --20:01 Amari Rodriguez R.N. Locked/Released at 09/20/2016 20:03 by Amari Rodriguez R.N.
--- NOTE | 2016-09-20 19:51 | ED ORDER SUMMARY ---
..... Patient: NICHOLAS KNOWLES OrderSheet [facility] VisitID: [id number] [place] [address] 81y, F Registration Date/Time: 09/20/2016 ORDER SHEET Weight: 49.8 kg (stated) Allergies: No Known Drug Allergy GENERAL ORDERS: Hip 2V Left w AP Pelvis Urgent (16:38 09/20/2016 Aj CLINTON) (Ack 16:40 IJurca ER Tech1) (17:45 IJurca ER Tech1) Forearm Left Urgent (17:26 09/20/2016 Aj CLINTON) (Ack 17:27 IJurca ER Tech1) (17:45 IJurca ER Tech1) Lumbar Spine 2 or 3V Urgent (17:26 09/20/2016 Aj CLINTON) (Ack 17:27 IJurca ER Tech1) (17:45 IJurca ER Tech1) CT Lumbar Spine wo Cont Urgent (18:04 09/20/2016 Aj CLINTON) (Ack 18:05 IJurca ER Tech1) (18:25 Josefa) MEDICATION ORDERS: Toradol IM 60 mg (NOW) (18:06 09/20/2016 Aj CLINTON) (Ack 18:52 Kamila R.N.) (18:58 Kamila R.N.) Dilaudid IM 1 mg (NOW) (19:32 09/20/2016 Aj CLINTON) (19:48 GMarshall R.N.) Ativan IM 0.5 mg (NOW) (19:32 09/20/2016 Aj CLINTON) (19:48 GMarshall R.N.) IV FLUIDS: ORDER SHEET NOTES: [Electronically signed by Amari Rodriguez R.N. (20:03 09/20/2016)] [Electronically signed by Yosvany Patino MD (07:50 09/24/2016)] [Electronically locked/signed by Amari Rodriguez R.N. (20:03 09/20/2016)]
--- NOTE | 2016-09-20 19:51 | ED ORDER SUMMARY ---
..... Patient: NICHOLAS KNOWLES OrderSheet [facility] VisitID: [id number] [place] [address] 81y, F Registration Date/Time: 09/20/2016 ORDER SHEET Weight: 49.8 kg (stated) Allergies: No Known Drug Allergy GENERAL ORDERS: Hip 2V Left w AP Pelvis Urgent (16:38 09/20/2016 Aj CLINTON) (Ack 16:40 IJurca ER Tech1) (17:45 IJurca ER Tech1) Forearm Left Urgent (17:26 09/20/2016 Aj CLINTON) (Ack 17:27 IJurca ER Tech1) (17:45 IJurca ER Tech1) Lumbar Spine 2 or 3V Urgent (17:26 09/20/2016 Aj CLINTON) (Ack 17:27 IJurca ER Tech1) (17:45 IJurca ER Tech1) CT Lumbar Spine wo Cont Urgent (18:04 09/20/2016 Aj CLINTON) (Ack 18:05 IJurca ER Tech1) (18:25 Josefa) MEDICATION ORDERS: Toradol IM 60 mg (NOW) (18:06 09/20/2016 Aj CLINTON) (Ack 18:52 Kamila R.N.) (18:58 Kamila R.N.) Dilaudid IM 1 mg (NOW) (19:32 09/20/2016 Aj CLINTON) (19:48 GMarshall R.N.) Ativan IM 0.5 mg (NOW) (19:32 09/20/2016 Aj CLINTON) (19:48 GMarshall R.N.) IV FLUIDS: ORDER SHEET NOTES: [Electronically signed by Amari Rodriguez R.N. (20:03 09/20/2016)] [Electronically signed by Yosvany Patino MD (07:50 09/24/2016)] [Electronically locked/signed by Amari Rodriguez R.N. (20:03 09/20/2016)]
--- NOTE | 2016-09-20 19:51 | ED CLINICAL REPORT ---
Clinical Report - Physicians/Mid Levels [facility] [address] [place] [address] 09/20/2016 15:51 Patient: NICHOLAS KNOWLES Time Seen: 16:34 Sep 20 2016. Arrived- By private vehicle. Historian- patient. CPT: ER phys charges level 4 (#[id number]). HISTORY OF PRESENT ILLNESS Chief Complaint: INJURY TO LEFT LOWER EXTREMITY (HIP) 1 week ago. Location of injuries- left hip. 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 Fell (Seen in ER for this and sent home.). The patient complains of moderate pain. No blow to the head or neck pain. REVIEW OF SYSTEMS The patient complains of pain on weight bearing. No numbness, dizziness, chest pain, difficulty breathing or weakness. No headache, nausea, abdominal pain, fever or vomiting. All systems otherwise negative, except as recorded above. PAST HISTORY DVT - Deep Venous Thrombosis. Fall. Gastroesophageal Reflux. LNMP - Last Normal Menstrual Period. Dementia. Hyperlipidemia. Dislocated Hip. Tetanus Status. Immunizations. Hypertension. Depression. Chronic L hip pain. Anxiety Reaction. Cancer. Additional Surgeries: Back Surgery. Chronic back pain. Left hip replacement. Neck Surgery. Port-a-Cath placement. R hip replacement. Medications: OxyCODONE HCl ER Oral, prn. MS Contin Oral, 2x a day. Warfarin Sodium Oral. Donepezil 10 mg q.h.s.. Donepezil HCl Oral (Tablet 5 mg) 2 tablets, daily. Hydrocodone-Acetaminophen Oral. Lisinopril 5 mg daily. Lisinopril Oral (Tablet 5 mg) 1 tablet, daily. Lorazepam 1 mg bid. LORazepam Oral 1 mg, 2x a day. Lovenox Subcutaneous. Multi Vitamin Daily Oral. Multivitamin 1 tablet daily. Omeprazole 20 mg 1 cap daily. Omeprazole Oral 20 mg, daily. Paroxetine 40 mg daily. PARoxetine HCl Oral (Tablet 40 mg) 1 tablet. Simvastatin Oral 20 mg, at bedtime. Smvastatin 20 mg daily. Allergies: No Known Drug Allergy. SOCIAL HISTORY Never smoker. No alcohol use. ADDITIONAL NOTES The nursing notes have been reviewed. PHYSICAL EXAM Vital Signs: 09/20/2016 15:54 BP: 122/70. HR: 57. RR: 20. O2 saturation: 98%. Temp: 98 F. Appearance: Alert. Appears to be in pain. Patient in mild distress. Head: Head non-tender. No swelling of head. Eyes: Pupils equal, round and reactive to light. ENT: No dental injury. Neck: Painless ROM. Non-tender. CVS: Heart sounds normal. Respiratory: Breath sounds normal. Chest nontender. Abdomen: Nontender. Back: Moderate soft-tissue tenderness in the right lower and left lower lumbar area. Skin: Skin intact. Skin warm. Extremities: Left forearm: mild tenderness and small ecchymosis located in the distal forearm. Neurovascular intact distally. Left hip. No tenderness or ecchymosis. No limitation in ROM. Neuro: Oriented X 3. No motor deficit. No sensory deficit. Reflexes normal. LABS, X-RAYS, AND EKG X-Rays: Left forearm negative. LS-Spine X-rays: Degenerative joint disease. Views: AP, lateral and obliques. Technique: good. Note - Tests: (CT lumbar spine : DJD , no acute findings.). PROGRESS AND PROCEDURES Course of Care: Toradol 60 mg IM Dilaudid 1 mg IM Ativan 0.5 mg IM Pt pain appears to be radicular from the lumbar spine down the left leg as she describes pain shooting to the foot. Patient/family counseled. Disposition: Discharged. Condition: stable. CLINICAL IMPRESSION Chronic radicular low back pain. Recent fall Mild dementia. INSTRUCTIONS Apply moist heat for 15-20 minutes three times a day for one weeks until better. No strenuous activity. You may walk and bear weight as tolerated. Warnings: SEDATIVE MEDICATION: You were given sedative medication during your visit. Do not drive or operate dangerous machinery. GENERAL WARNINGS: Return or contact your physician immediately if your condition worsens or changes unexpectedly, if not improving as expected, or if other problems arise. Your Current Medications: CONTINUE TAKING THE FOLLOWING MEDICATIONS: Donepezil 10 mg q.h.s.*. Donepezil HCl Oral : Tablet 5 mg, 2 tablets daily. Hydrocodone-Acetaminophen Oral. Lisinopril 5 mg daily*. Lisinopril Oral : Tablet 5 mg, 1 tablet daily. Lorazepam 1 mg bid*. LORazepam Oral : 1 mg 2x a day. Lovenox Subcutaneous. MS Contin Oral : 2x a day. Multi Vitamin Daily Oral. Multivitamin 1 tablet daily*. Omeprazole 20 mg 1 cap daily*. Omeprazole Oral : 20 mg daily. OxyCODONE HCl ER Oral : prn. Paroxetine 40 mg daily*. PARoxetine HCl Oral : Tablet 40 mg, 1 tablet. Simvastatin Oral : 20 mg at bedtime. Smvastatin 20 mg daily*. Warfarin Sodium Oral. Prescription Medications: Flexeril 5 mg: take 1 orally every 8 hours as needed for muscle spasm or pain. Dispense ten (10). No refills. Substitution is permissible. Follow-up: Follow up with your doctor in one week. Call for an appointment. Understanding of the discharge instructions verbalized by patient. (Electronically signed by Yosvany Patino MD 09/24/2016 7:50)
--- NOTE | 2016-09-20 19:51 | ED CLINICAL REPORT ---
Clinical Report - Physicians/Mid Levels [facility] [address] [place] [address] 09/20/2016 15:51 Patient: NICHOLAS KNOWLES Time Seen: 16:34 Sep 20 2016. Arrived- By private vehicle. Historian- patient. CPT: ER phys charges level 4 (#[id number]). HISTORY OF PRESENT ILLNESS Chief Complaint: INJURY TO LEFT LOWER EXTREMITY (HIP) 1 week ago. Location of injuries- left hip. 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 Fell (Seen in ER for this and sent home.). The patient complains of moderate pain. No blow to the head or neck pain. REVIEW OF SYSTEMS The patient complains of pain on weight bearing. No numbness, dizziness, chest pain, difficulty breathing or weakness. No headache, nausea, abdominal pain, fever or vomiting. All systems otherwise negative, except as recorded above. PAST HISTORY DVT - Deep Venous Thrombosis. Fall. Gastroesophageal Reflux. LNMP - Last Normal Menstrual Period. Dementia. Hyperlipidemia. Dislocated Hip. Tetanus Status. Immunizations. Hypertension. Depression. Chronic L hip pain. Anxiety Reaction. Cancer. Additional Surgeries: Back Surgery. Chronic back pain. Left hip replacement. Neck Surgery. Port-a-Cath placement. R hip replacement. Medications: OxyCODONE HCl ER Oral, prn. MS Contin Oral, 2x a day. Warfarin Sodium Oral. Donepezil 10 mg q.h.s.. Donepezil HCl Oral (Tablet 5 mg) 2 tablets, daily. Hydrocodone-Acetaminophen Oral. Lisinopril 5 mg daily. Lisinopril Oral (Tablet 5 mg) 1 tablet, daily. Lorazepam 1 mg bid. LORazepam Oral 1 mg, 2x a day. Lovenox Subcutaneous. Multi Vitamin Daily Oral. Multivitamin 1 tablet daily. Omeprazole 20 mg 1 cap daily. Omeprazole Oral 20 mg, daily. Paroxetine 40 mg daily. PARoxetine HCl Oral (Tablet 40 mg) 1 tablet. Simvastatin Oral 20 mg, at bedtime. Smvastatin 20 mg daily. Allergies: No Known Drug Allergy. SOCIAL HISTORY Never smoker. No alcohol use. ADDITIONAL NOTES The nursing notes have been reviewed. PHYSICAL EXAM Vital Signs: 09/20/2016 15:54 BP: 122/70. HR: 57. RR: 20. O2 saturation: 98%. Temp: 98 F. Appearance: Alert. Appears to be in pain. Patient in mild distress. Head: Head non-tender. No swelling of head. Eyes: Pupils equal, round and reactive to light. ENT: No dental injury. Neck: Painless ROM. Non-tender. CVS: Heart sounds normal. Respiratory: Breath sounds normal. Chest nontender. Abdomen: Nontender. Back: Moderate soft-tissue tenderness in the right lower and left lower lumbar area. Skin: Skin intact. Skin warm. Extremities: Left forearm: mild tenderness and small ecchymosis located in the distal forearm. Neurovascular intact distally. Left hip. No tenderness or ecchymosis. No limitation in ROM. Neuro: Oriented X 3. No motor deficit. No sensory deficit. Reflexes normal. LABS, X-RAYS, AND EKG X-Rays: Left forearm negative. LS-Spine X-rays: Degenerative joint disease. Views: AP, lateral and obliques. Technique: good. Note - Tests: (CT lumbar spine : DJD , no acute findings.). PROGRESS AND PROCEDURES Course of Care: Toradol 60 mg IM Dilaudid 1 mg IM Ativan 0.5 mg IM Pt pain appears to be radicular from the lumbar spine down the left leg as she describes pain shooting to the foot. Patient/family counseled. Disposition: Discharged. Condition: stable. CLINICAL IMPRESSION Chronic radicular low back pain. Recent fall Mild dementia. INSTRUCTIONS Apply moist heat for 15-20 minutes three times a day for one weeks until better. No strenuous activity. You may walk and bear weight as tolerated. Warnings: SEDATIVE MEDICATION: You were given sedative medication during your visit. Do not drive or operate dangerous machinery. GENERAL WARNINGS: Return or contact your physician immediately if your condition worsens or changes unexpectedly, if not improving as expected, or if other problems arise. Your Current Medications: CONTINUE TAKING THE FOLLOWING MEDICATIONS: Donepezil 10 mg q.h.s.*. Donepezil HCl Oral : Tablet 5 mg, 2 tablets daily. Hydrocodone-Acetaminophen Oral. Lisinopril 5 mg daily*. Lisinopril Oral : Tablet 5 mg, 1 tablet daily. Lorazepam 1 mg bid*. LORazepam Oral : 1 mg 2x a day. Lovenox Subcutaneous. MS Contin Oral : 2x a day. Multi Vitamin Daily Oral. Multivitamin 1 tablet daily*. Omeprazole 20 mg 1 cap daily*. Omeprazole Oral : 20 mg daily. OxyCODONE HCl ER Oral : prn. Paroxetine 40 mg daily*. PARoxetine HCl Oral : Tablet 40 mg, 1 tablet. Simvastatin Oral : 20 mg at bedtime. Smvastatin 20 mg daily*. Warfarin Sodium Oral. Prescription Medications: Flexeril 5 mg: take 1 orally every 8 hours as needed for muscle spasm or pain. Dispense ten (10). No refills. Substitution is permissible. Follow-up: Follow up with your doctor in one week. Call for an appointment. Understanding of the discharge instructions verbalized by patient. (Electronically signed by Yosvany Patino MD 09/24/2016 7:50)
--- NOTE | 2016-09-24 07:50 | ED MAR SUMMARY ---
..... Medication Administration Record [facility] [address] [place] [address] Patient: NICHOLAS KNOWLES Visit ID: [id number] 81y, F Weight: 49.8 kg Height/Length: 62 in BMI: 20.1 ALLERGIES: No Known Drug Allergy Given 18:58 09/20/2016 Jessica Girard R.N. Medication Administered: TORADOL [IM] (KETOROLAC TROMETHAMINE), Dose: 60 mg IM. Medication Ordered: Toradol IM 60 mg (NOW). Given 19:48 09/20/2016 Amari Rodriguez R.N. Medication Administered: DILAUDID [IM] (HYDROMORPHONE HCL PF), Dose: 1 mg IM. Medication Ordered: Dilaudid IM 1 mg (NOW). Given 19:48 09/20/2016 Amari Rodriguez R.N. Medication Administered: ATIVAN [IM] (LORAZEPAM), Dose: 0.5 mg IM. Medication Ordered: Ativan IM 0.5 mg (NOW).
--- NOTE | 2016-09-24 07:50 | ED DISCHARGE INSTRUCTIONS ---
Patient: NICHOLAS KNOWLES General Instructions [facility] VisitID: [id number] [place] [address] 81y, F Registration Date/Time: 09/20/2016 Chronic radicular low back pain. Recent fall Mild dementia. INSTRUCTIONS Apply moist heat for 15-20 minutes three times a day for one weeks until better. No strenuous activity. You may walk and bear weight as tolerated. Warnings: SEDATIVE MEDICATION: You were given sedative medication during your visit. Do not drive or operate dangerous machinery. GENERAL WARNINGS: Return or contact your physician immediately if your condition worsens or changes unexpectedly, if not improving as expected, or if other problems arise. Your Current Medications: CONTINUE TAKING THE FOLLOWING MEDICATIONS: Donepezil 10 mg q.h.s.*. Donepezil HCl Oral : Tablet 5 mg, 2 tablets daily. Hydrocodone-Acetaminophen Oral. Lisinopril 5 mg daily*. Lisinopril Oral : Tablet 5 mg, 1 tablet daily. Lorazepam 1 mg bid*. LORazepam Oral : 1 mg 2x a day. Lovenox Subcutaneous. MS Contin Oral : 2x a day. Multi Vitamin Daily Oral. Multivitamin 1 tablet daily*. Omeprazole 20 mg 1 cap daily*. Omeprazole Oral : 20 mg daily. OxyCODONE HCl ER Oral : prn. Paroxetine 40 mg daily*. PARoxetine HCl Oral : Tablet 40 mg, 1 tablet. Simvastatin Oral : 20 mg at bedtime. Smvastatin 20 mg daily*. Warfarin Sodium Oral. Prescription Medications: Flexeril 5 mg: take 1 orally every 8 hours as needed for muscle spasm or pain. Dispense ten (10). No refills. Substitution is permissible. Follow-up: Follow up with your doctor in one week. Call for an appointment. Understanding of the discharge instructions verbalized by patient. ADDITIONAL INFORMATION Cyclobenzaprine Hydrochloride Oral tablet What is this medicine? CYCLOBENZAPRINE (manuelito leal) is a muscle relaxer. It is used to treat muscle pain, spasms, and stiffness. How should I use this medicine? Take this medicine by mouth with a glass of water. Follow the directions on the prescription label. If this medicine upsets your stomach, take it with food or milk. Take your medicine at regular intervals. Do not take it more often than directed. Talk to your rubber and pounder regarding the use of this medicine in children. Special care may be needed. What side effects may I notice from receiving this medicine? Side effects that you should report to your doctor or health child care specialist as soon as possible: allergic reactions like skin rash, itching or hives, swelling of the face, lips, or tongue chest pain fast heartbeat hallucinations seizures vomiting Side effects that usually do not require medical attention (report to your doctor or health child care specialist if they continue or are bothersome): headache What may interact with this medicine? Do not take this medicine with any of the following medications: cisapride droperidol flecainide grepafloxacin halofantrine levomethadyl MAOIs like Carbex, Eldepryl, Marplan, Nardil, and Parnate nilotinib pimozide probucol sertindole This medicine may also interact with the following medications: abarelix alcohol contrast dyes dolasetron guanethidine medicines for cancer medicines for depression, anxiety, or psychotic disturbances medicines to treat an irregular heartbeat medicines used for sleep or numbness during surgery or procedure methadone octreotide ondansetron palonosetron phenothiazines like chlorpromazine, mesoridazine, prochlorperazine, thioridazine some medicines for infection like alfuzosin, chloroquine, clarithromycin, levofloxacin, mefloquine, pentamidine, troleandomycin tramadol vardenafil What if I miss a dose? If you miss a dose, take it as soon as you can. If it is almost time for your next dose, take only that dose. Do not take double or extra doses. Where should I keep my medicine? Keep out of the reach of children. Store at room temperature between 15 and 30 degrees C (59 and 86 degrees F). Keep container tightly closed. Throw away any unused medicine after the expiration date. What should I tell my health care provider before I take this medicine? They need to know if you have any of these conditions: heart disease, irregular heartbeat, or previous heart attack liver disease thyroid problem an unusual or allergic reaction to cyclobenzaprine, tricyclic antidepressants, lactose, other medicines, foods, dyes, or preservatives or trying to get breast-feeding What should I watch for while using this medicine? Check with your doctor or health child care specialist if your condition does not improve within 1 to 3 weeks. You may get drowsy or dizzy when you first start taking the medicine or change doses. Do not drive, use machinery, or do anything that may be dangerous until you know how the medicine affects you. Stand or sit up slowly. Your mouth may get dry. Drinking water, chewing sugarless gum, or sucking on hard candy may help. You have been given the following additional information: Cyclobenzaprine Hydrochloride Oral tablet No strenuous activity. You may walk and bear weight as tolerated. (Electronically signed by Yosvany Patino MD 09/24/2016 7:50)
--- NOTE | 2016-09-24 07:50 | ED MAR SUMMARY ---
..... Medication Administration Record [facility] [address] [place] [address] Patient: NICHOLAS KNOWLES Visit ID: [id number] 81y, F Weight: 49.8 kg Height/Length: 62 in BMI: 20.1 ALLERGIES: No Known Drug Allergy Given 18:58 09/20/2016 Jessica Girard R.N. Medication Administered: TORADOL [IM] (KETOROLAC TROMETHAMINE), Dose: 60 mg IM. Medication Ordered: Toradol IM 60 mg (NOW). Given 19:48 09/20/2016 Amari Rodriguez R.N. Medication Administered: DILAUDID [IM] (HYDROMORPHONE HCL PF), Dose: 1 mg IM. Medication Ordered: Dilaudid IM 1 mg (NOW). Given 19:48 09/20/2016 Amari Rodriguez R.N. Medication Administered: ATIVAN [IM] (LORAZEPAM), Dose: 0.5 mg IM. Medication Ordered: Ativan IM 0.5 mg (NOW).
--- NOTE | 2016-09-24 07:50 | ED DISCHARGE INSTRUCTIONS ---
Patient: NICHOLAS KNOWLES General Instructions [facility] VisitID: [id number] [place] [address] 81y, F Registration Date/Time: 09/20/2016 Chronic radicular low back pain. Recent fall Mild dementia. INSTRUCTIONS Apply moist heat for 15-20 minutes three times a day for one weeks until better. No strenuous activity. You may walk and bear weight as tolerated. Warnings: SEDATIVE MEDICATION: You were given sedative medication during your visit. Do not drive or operate dangerous machinery. GENERAL WARNINGS: Return or contact your physician immediately if your condition worsens or changes unexpectedly, if not improving as expected, or if other problems arise. Your Current Medications: CONTINUE TAKING THE FOLLOWING MEDICATIONS: Donepezil 10 mg q.h.s.*. Donepezil HCl Oral : Tablet 5 mg, 2 tablets daily. Hydrocodone-Acetaminophen Oral. Lisinopril 5 mg daily*. Lisinopril Oral : Tablet 5 mg, 1 tablet daily. Lorazepam 1 mg bid*. LORazepam Oral : 1 mg 2x a day. Lovenox Subcutaneous. MS Contin Oral : 2x a day. Multi Vitamin Daily Oral. Multivitamin 1 tablet daily*. Omeprazole 20 mg 1 cap daily*. Omeprazole Oral : 20 mg daily. OxyCODONE HCl ER Oral : prn. Paroxetine 40 mg daily*. PARoxetine HCl Oral : Tablet 40 mg, 1 tablet. Simvastatin Oral : 20 mg at bedtime. Smvastatin 20 mg daily*. Warfarin Sodium Oral. Prescription Medications: Flexeril 5 mg: take 1 orally every 8 hours as needed for muscle spasm or pain. Dispense ten (10). No refills. Substitution is permissible. Follow-up: Follow up with your doctor in one week. Call for an appointment. Understanding of the discharge instructions verbalized by patient. ADDITIONAL INFORMATION Cyclobenzaprine Hydrochloride Oral tablet What is this medicine? CYCLOBENZAPRINE (manuelito leal) is a muscle relaxer. It is used to treat muscle pain, spasms, and stiffness. How should I use this medicine? Take this medicine by mouth with a glass of water. Follow the directions on the prescription label. If this medicine upsets your stomach, take it with food or milk. Take your medicine at regular intervals. Do not take it more often than directed. Talk to your route process administrator regarding the use of this medicine in children. Special care may be needed. What side effects may I notice from receiving this medicine? Side effects that you should report to your doctor or health post acute care nurse as soon as possible: allergic reactions like skin rash, itching or hives, swelling of the face, lips, or tongue chest pain fast heartbeat hallucinations seizures vomiting Side effects that usually do not require medical attention (report to your doctor or health post acute care nurse if they continue or are bothersome): headache What may interact with this medicine? Do not take this medicine with any of the following medications: cisapride droperidol flecainide grepafloxacin halofantrine levomethadyl MAOIs like Carbex, Eldepryl, Marplan, Nardil, and Parnate nilotinib pimozide probucol sertindole This medicine may also interact with the following medications: abarelix alcohol contrast dyes dolasetron guanethidine medicines for cancer medicines for depression, anxiety, or psychotic disturbances medicines to treat an irregular heartbeat medicines used for sleep or numbness during surgery or procedure methadone octreotide ondansetron palonosetron phenothiazines like chlorpromazine, mesoridazine, prochlorperazine, thioridazine some medicines for infection like alfuzosin, chloroquine, clarithromycin, levofloxacin, mefloquine, pentamidine, troleandomycin tramadol vardenafil What if I miss a dose? If you miss a dose, take it as soon as you can. If it is almost time for your next dose, take only that dose. Do not take double or extra doses. Where should I keep my medicine? Keep out of the reach of children. Store at room temperature between 15 and 30 degrees C (59 and 86 degrees F). Keep container tightly closed. Throw away any unused medicine after the expiration date. What should I tell my health care provider before I take this medicine? They need to know if you have any of these conditions: heart disease, irregular heartbeat, or previous heart attack liver disease thyroid problem an unusual or allergic reaction to cyclobenzaprine, tricyclic antidepressants, lactose, other medicines, foods, dyes, or preservatives or trying to get breast-feeding What should I watch for while using this medicine? Check with your doctor or health post acute care nurse if your condition does not improve within 1 to 3 weeks. You may get drowsy or dizzy when you first start taking the medicine or change doses. Do not drive, use machinery, or do anything that may be dangerous until you know how the medicine affects you. Stand or sit up slowly. Your mouth may get dry. Drinking water, chewing sugarless gum, or sucking on hard candy may help. You have been given the following additional information: Cyclobenzaprine Hydrochloride Oral tablet No strenuous activity. You may walk and bear weight as tolerated. (Electronically signed by Yosvany Patino MD 09/24/2016 7:50)
--- NOTE | 2016-09-24 07:51 | ED MED RECONCILIATION SUMMARY ---
Patient: NICHOLAS KNOWLES Medication Reconciliation Report [facility] VisitID: [id number] [place] [address] 81y, F Registration Date/Time: 09/20/2016 Weight: 49.8 kg Height/Length: 62 in. BMI: 20.1 ALLERGIES: No Known Drug Allergy The patient's Home Medications are listed below: CONTINUE TAKING THE FOLLOWING MEDICATIONS: Donepezil 10 mg q.h.s. Donepezil HCl Oral (5 mg) 2 tablets, daily Hydrocodone-Acetaminophen Oral Lisinopril 5 mg daily Lisinopril Oral (5 mg) 1 tablet, daily Lorazepam 1 mg bid LORazepam Oral 1 mg, 2x a day Lovenox Subcutaneous MS Contin Oral, 2x a day Multi Vitamin Daily Oral Multivitamin 1 tablet daily Omeprazole 20 mg 1 cap daily Omeprazole Oral 20 mg, daily OxyCODONE HCl ER Oral, prn Paroxetine 40 mg daily PARoxetine HCl Oral (40 mg) 1 tablet Simvastatin Oral 20 mg, at bedtime Smvastatin 20 mg daily Warfarin Sodium Oral The source(s) of the original Home Medication information: Not obtained. The following Medications were given to the patient in the Emergency Department: Toradol [IM] IM 60 mg, administered: 09/20/2016 6:58:00 PM Dilaudid [IM] IM 1 mg, administered: 09/20/2016 7:48:00 PM Ativan [IM] IM 0.5 mg, administered: 09/20/2016 7:48:00 PM The following Medications were prescribed to the patient: Flexeril 5 mg: take 1 orally every 8 hours as needed for muscle spasm or pain. Dispense ten (10). No refills. Substitution is permissible. -- Yosvany Patino MD
--- NOTE | 2016-09-24 07:51 | ED MED RECONCILIATION SUMMARY ---
Patient: NICHOLAS KNOWLES Medication Reconciliation Report [facility] VisitID: [id number] [place] [address] 81y, F Registration Date/Time: 09/20/2016 Weight: 49.8 kg Height/Length: 62 in. BMI: 20.1 ALLERGIES: No Known Drug Allergy The patient's Home Medications are listed below: CONTINUE TAKING THE FOLLOWING MEDICATIONS: Donepezil 10 mg q.h.s. Donepezil HCl Oral (5 mg) 2 tablets, daily Hydrocodone-Acetaminophen Oral Lisinopril 5 mg daily Lisinopril Oral (5 mg) 1 tablet, daily Lorazepam 1 mg bid LORazepam Oral 1 mg, 2x a day Lovenox Subcutaneous MS Contin Oral, 2x a day Multi Vitamin Daily Oral Multivitamin 1 tablet daily Omeprazole 20 mg 1 cap daily Omeprazole Oral 20 mg, daily OxyCODONE HCl ER Oral, prn Paroxetine 40 mg daily PARoxetine HCl Oral (40 mg) 1 tablet Simvastatin Oral 20 mg, at bedtime Smvastatin 20 mg daily Warfarin Sodium Oral The source(s) of the original Home Medication information: Not obtained. The following Medications were given to the patient in the Emergency Department: Toradol [IM] IM 60 mg, administered: 09/20/2016 6:58:00 PM Dilaudid [IM] IM 1 mg, administered: 09/20/2016 7:48:00 PM Ativan [IM] IM 0.5 mg, administered: 09/20/2016 7:48:00 PM The following Medications were prescribed to the patient: Flexeril 5 mg: take 1 orally every 8 hours as needed for muscle spasm or pain. Dispense ten (10). No refills. Substitution is permissible. -- Yosvany Patino MD
== END 2016-09-20 20:05 | disposition home or self-care (01) ==
LOC: ED SRH 15:49
DX: M54.16 Radiculopathy, lumbar region (principal); Z79.899 Other long term (current) drug therapy; W19.XXXA Unspecified fall, initial encounter; Y93.9 Activity, unspecified; Y92.019 Unspecified place in single-family (private) house as the place of occurrence of the external cause; Y99.9 Unspecified external cause status; F03.90 Unspecified dementia, unspecified severity, without behavioral disturbance, psychotic disturbance, mood disturbance, and anxiety; I10 Essential (primary) hypertension; E78.00 Pure hypercholesterolemia, unspecified; Z79.891 Long term (current) use of opiate analgesic

== ENCOUNTER 2016-10-14 16:58 | Emergency (ER) | payer OTHER, BC ==
--- NOTE | 2016-10-14 17:45 | DIAGNOSTIC IMAGING REPORT ---
PROCEDURE: XR HIP 2VW W W/O AP PELVIS-LT INDICATION: Left hip pain, no known injury TECHNIQUE: AP view of the pelvis and hips with lateral view of the left hip. COMPARISON: 09/20/2016 FINDINGS: LEFT HIP: Left hip arthroplasty components including additional fixation hardware are present. No dislocation or new periprosthetic lucency. No acute fractures. Dystrophic calcifications in the adjacent soft tissue are stable. Sclerosis of the superior acetabulum. Visible bones are otherwise diffusely demineralized. PELVIS: Diffuse demineralization. No acute fractures. Stable position of bilateral hip arthroplasty components. Surgical clips in the right lower quadrant of the abdomen. Bowel gas pattern demonstrates moderate retained stool. Mild calcific atherosclerosis. IMPRESSION: 1. Bilateral hip arthroplasties without dislocation. 2. No acute fractures. 3. Demineralization.
--- NOTE | 2016-10-14 18:19 | ED CLINICAL REPORT ---
Clinical Report - Physicians/Mid Levels Merged With [facility] [address] [place] [address] 10/14/2016 16:59 Patient: NICHOLAS KNOWLES Time Seen: 173Oct 14 2016. Arrived- By ambulance. Historian- EMS personnel. HISTORY OF PRESENT ILLNESS Chief Complaint: (L. Hip Pain). The injury occurred just prior to arrival. Occurred at home. No fainting episodes. The patient complains of moderate pain. No blow to the head, neck pain or loss of consciousness. (Patient denies any hip pain that is related to injury. Reports chronic hip pain. Patient reports this has been according for a few years. He denies any recent fall over the last 2 weeks. Denies any new back pain. Denies any nausea or vomiting, LOC. Pain worsens with movement.). REVIEW OF SYSTEMS No headache or chest pain. All systems otherwise negative, except as recorded above. PAST HISTORY Problems: Acute Pain. Abnormal Test. Lower Extremity Pain. DVT - Deep Venous Thrombosis. Prior Injury, Same Area. Laceration. Fall. Contusion. Gastroesophageal Reflux. LNMP - Last Normal Menstrual Period. Bradycardia. Dementia. Hyperlipidemia. Dislocated Hip. Tetanus Status. Immunizations. Hypertension. Depression. Muscle Strain, Upper Extremity. Chronic L hip pain. Anxiety Reaction. Cancer. Additional Surgeries: Back Surgery. Left hip replacement. Neck Surgery. Port-a-Cath placement. R hip replacement. Medications: Simvastatin Oral. Sertraline HCl Oral. Omeprazole Oral. LORazepam Oral. Lisinopril Oral. Hydrocodone-Acetaminophen Oral. Donepezil HCl Oral. Allergies: No Known Drug Allergy. SOCIAL HISTORY Smoker- current status unknown. ADDITIONAL NOTES The nursing notes have been reviewed. PHYSICAL EXAM Vital Signs: 10/14/2016 17:14 BP: 149/69. HR: 52. RR: 18. O2 saturation: 97%. Temp: 97.9 F. Appearance: Alert. No acute distress. No backboard or C-collar. Head: Head non-tender. ENT: No dental injury. No malocclusion. Neck: Non-tender. No vertebral tenderness. Posterior neck: No tenderness or laceration. CVS: Heart sounds normal. Pulses normal. Respiratory: Breath sounds normal. Chest nontender. No chest wall injury. Abdomen: No visible injury. Soft. Bowel sounds normal. No abdominal tenderness. The bowel sounds are not abnormal. Back: No tenderness. ROM normal. No tenderness or vertebral point tenderness. Skin: Skin intact. Skin warm. Extremities: Pelvis stable. Left hip: mild tenderness. (old ecchymosis). Neuro: [place] Coma Scale: 15- eyes open spontaneously (4); best verbal response- oriented x 3 (5); best motor response- obeys commands (6). Oriented X 3. LABS, X-RAYS, AND EKG Lt Hip X-ray: (IMPRESSION: 1. Bilateral hip arthroplasties without dislocation. 2. No acute fractures. 3. Demineralization. Electronically Final signed by:Molly Saha MD 10/14/2016 5:45:57 PM). PROGRESS AND PROCEDURES Course of Care: Pt in no distress. Stable. No trauma. No signs of acute fx.this is a chronic concern. Patient will be picked up by her daughter. No other injuries. No systemic symptoms. Previous records reviewed. Patient recently seen in the emergency department. Recent CT lumbar spine. 10/14/2016 17:14 BP: 149/69. HR: 52. RR: 18. O2 saturation: 97%. Temp: 97.9 F. Patient is stable. Patient/family counseled. Disposition: Discharged. Condition: good. CLINICAL IMPRESSION Chronic arthritis of the left hip. INSTRUCTIONS Apply ice. You may walk and bear weight as tolerated. Follow-up: Follow up with your doctor as needed. (Electronically signed by Modesta Bonilla P.A.-C 10/14/2016 18:35)
--- NOTE | 2016-10-14 18:19 | ED ORDER SUMMARY ---
..... Patient: NICHOLAS KNOWLES OrderSheet [facility] VisitID: [id number] [address] [place] [address] 81y, F Registration Date/Time: 10/14/2016 ORDER SHEET Weight: 49.8 kg Allergies: No Known Drug Allergy GENERAL ORDERS: Hip 2V Left w AP Pelvis Urgent (17:10 10/14/2016 EKjazzmineleteofilo P.A.-C) (Ack 17:23 Rad) [facility] MEDICATION ORDERS: Dilaudid IM 1 mg (HIGH ALERT MEDICATION, NOW) (17:32 10/14/2016 Leonor P.A.-C) (17:40 Dasha) Phenergan IM 12.5 mg (HIGH ALERT MEDICATION, NOW) (17:33 10/14/2016 Vicenteleteofilo P.A.-C) (17:40 Dasha) IV FLUIDS: ORDER SHEET NOTES: [Electronically signed by Modesta Bonilla P.A.-C (18:35 10/14/2016)] [Electronically signed by Josie Chavez (18:47 10/14/2016)] [Electronically locked/signed by Josie Chavez (18:47 10/14/2016)]
--- NOTE | 2016-10-14 18:19 | ED ORDER SUMMARY ---
..... Patient: NICHOLAS KNOWLES OrderSheet [facility] VisitID: [id number] [address] [place] [address] 81y, F Registration Date/Time: 10/14/2016 ORDER SHEET Weight: 49.8 kg Allergies: No Known Drug Allergy GENERAL ORDERS: Hip 2V Left w AP Pelvis Urgent (17:10 10/14/2016 EKjazzmineleteofilo P.A.-C) (Ack 17:23 Rad) [facility] MEDICATION ORDERS: Dilaudid IM 1 mg (HIGH ALERT MEDICATION, NOW) (17:32 10/14/2016 Leonor P.A.-C) (17:40 Dasha) Phenergan IM 12.5 mg (HIGH ALERT MEDICATION, NOW) (17:33 10/14/2016 Vicenteleteofilo P.A.-C) (17:40 Dasha) IV FLUIDS: ORDER SHEET NOTES: [Electronically signed by Modesta Bonilla P.A.-C (18:35 10/14/2016)] [Electronically signed by Josie Chavez (18:47 10/14/2016)] [Electronically locked/signed by Josie Chavez (18:47 10/14/2016)]
--- NOTE | 2016-10-14 18:19 | ED NURSING NOTES ---
Clinical Report - Nurses [facility] [address] [place] [address] 10/14/2016 16:59 Patient: NICHOLAS KNOWLES TRIAGE Triage time 1700. Acuity: LEVEL 4. Chief Complaint: LEFT LOWER EXTREMITY PAIN. Alert. --17:24 Josie Chavez 17:14 10/14/16. BP: 149/69. HR: 52. RR: 18. O2 saturation: 97%. Temp: 97.9 F. Pain level now 03/18. --17:24 Josie Chavez. Weight: 49.8 kg. Height/Length: 62 inches. BMI: 20.1. --17:14 Josie Chavez. Medications Donepezil HCl Oral. --17:16 Josie Chavez Hydrocodone-Acetaminophen Oral. --17:16 Josie Chavez Lisinopril Oral. --17:16 Josie Chavez LORazepam Oral. --17:16 Josie Chavez Omeprazole Oral. --17:16 Josie Chavez Sertraline HCl Oral. --17:17 Josie Chavez Simvastatin Oral. --17:17 Josie Chavez. Allergies No Known Drug Allergy. --17:17 Josie Chavez. History Arrived by EMS. Historian: EMS and patient. An injury may have occurred. This occurred today. It is described as radiating to the left lower extremity and foot. Treatment FIELD CHECKER: None. SOCIAL HX: Light tobacco smoker (cigarette)- less than 1/2 a pack per day. --17:24 Josie Chavez. PROBLEMS: Acute Pain. Lower Extremity Pain. DVT - Deep Venous Thrombosis. Fall. Gastroesophageal Reflux. LNMP - Last Normal Menstrual Period. Bradycardia. Dementia. Hyperlipidemia. Dislocated Hip. Hypertension. Depression. Muscle Strain, Upper Extremity. Chronic L hip pain. Anxiety Reaction. Cancer. --17:18 Josie Chavez. ADDITIONAL SURGERIES: Back Surgery. Left hip replacement. Neck Surgery. Port-a-Cath placement. R hip replacement. --17:18 Josie Chavez. Interventions ID band on patient. To treatment room. --17:24 Josie Chavez. PHYSICAL ASSESSMENT To room via stretcher. Patient gowned. GENERAL / NEURO / PSYCH: Appears anxious. EXTREMITIES: Extremity pulses are within normal limits. Neuro-vascular status intact to the extremity. No lower extremity edema. Left hip: tenderness, ecchymosis and deformity. Limited ROM secondary to pain. The left leg is shortened. SKIN: Skin intact. Skin is warm and dry. --17:25 Josie Chavez. NURSING PROGRESS NOTES Reassurance given. Call light placed in reach. Side rails up x 2. Bed placed in lowest position. Brakes of bed on. Patient ready for evaluation- chart flagged. --17:25 Josie Chavez Reassessment after medication administered. She is calm and has had no adverse reaction. Overall patient status is improved- she states feels better. --18:46 Josie Chavez. DISPOSITION / DISCHARGE 17:40 10/14/2016 Dilaudid (HYDROmorphone HCl PF) IM 1 mg given. Given in the left gluteus edi. Allergies verified, confirmed 5 rights and sedative warning given to the patient. --17:40 Josie Chavez 17:40 10/14/2016 Phenergan (Promethazine HCl) IM 12.5 mg given. Given in the right gluteus edi. Allergies verified, confirmed 5 rights and sedative warning given to the patient. --17:40 Josie Chavez Departure time: 1841. Condition at departure: improved and stable. Discharge instructions provided and reviewed with the family. Family verbalized understanding. Written instructions provided in Taiwanese. The patient was discharged by the physician medical record assistant. She was discharged home and accompanied by family. She left the Emergency Department in a wheelchair and via private vehicle. Family member driving. --18:47 Josie Chavez. Locked/Released at 10/14/2016 18:47 by Josie Chavez,
--- NOTE | 2016-10-14 18:19 | ED NURSING NOTES ---
Clinical Report - Nurses [facility] [address] [place] [address] 10/14/2016 16:59 Patient: NICHOLAS KNOWLES TRIAGE Triage time 1700. Acuity: LEVEL 4. Chief Complaint: LEFT LOWER EXTREMITY PAIN. Alert. --17:24 Josie Chavez 17:14 10/14/16. BP: 149/69. HR: 52. RR: 18. O2 saturation: 97%. Temp: 97.9 F. Pain level now 03/18. --17:24 Josie Chavez. Weight: 49.8 kg. Height/Length: 62 inches. BMI: 20.1. --17:14 Josie Chavez. Medications Donepezil HCl Oral. --17:16 Josie Chavez Hydrocodone-Acetaminophen Oral. --17:16 Josie Chavez Lisinopril Oral. --17:16 Josie Chavez LORazepam Oral. --17:16 Josie Chavez Omeprazole Oral. --17:16 Josie Chavez Sertraline HCl Oral. --17:17 Josie Chavez Simvastatin Oral. --17:17 Josie Chavez. Allergies No Known Drug Allergy. --17:17 Josie Chavez. History Arrived by EMS. Historian: EMS and patient. An injury may have occurred. This occurred today. It is described as radiating to the left lower extremity and foot. 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 SOCIAL HX: Light tobacco smoker (cigarette)- less than 1/2 a pack per day. --17:24 Josie Chavez. PROBLEMS: Acute Pain. Lower Extremity Pain. DVT - Deep Venous Thrombosis. Fall. Gastroesophageal Reflux. LNMP - Last Normal Menstrual Period. Bradycardia. Dementia. Hyperlipidemia. Dislocated Hip. Hypertension. Depression. Muscle Strain, Upper Extremity. Chronic L hip pain. Anxiety Reaction. Cancer. --17:18 Josie Chavez. ADDITIONAL SURGERIES: Back Surgery. Left hip replacement. Neck Surgery. Port-a-Cath placement. R hip replacement. --17:18 Josie Chavez. Interventions ID band on patient. To treatment room. --17:24 Josie Chavez. PHYSICAL ASSESSMENT To room via stretcher. Patient gowned. GENERAL / NEURO / PSYCH: Appears anxious. EXTREMITIES: Extremity pulses are within normal limits. Neuro-vascular status intact to the extremity. No lower extremity edema. Left hip: tenderness, ecchymosis and deformity. Limited ROM secondary to pain. The left leg is shortened. SKIN: Skin intact. Skin is warm and dry. --17:25 Josie Chavez. NURSING PROGRESS NOTES Reassurance given. Call light placed in reach. Side rails up x 2. Bed placed in lowest position. Brakes of bed on. Patient ready for evaluation- chart flagged. --17:25 Josie Chavez Reassessment after medication administered. She is calm and has had no adverse reaction. Overall patient status is improved- she states feels better. --18:46 Josie Chavez. DISPOSITION / DISCHARGE 17:40 10/14/2016 Dilaudid (HYDROmorphone HCl PF) IM 1 mg given. Given in the left gluteus edi. Allergies verified, confirmed 5 rights and sedative warning given to the patient. --17:40 Josie Chavez 17:40 10/14/2016 Phenergan (Promethazine HCl) IM 12.5 mg given. Given in the right gluteus edi. Allergies verified, confirmed 5 rights and sedative warning given to the patient. --17:40 Josie Chavez Departure time: 1841. Condition at departure: improved and stable. Discharge instructions provided and reviewed with the family. Family verbalized understanding. Written instructions provided in [place]. The patient was discharged by the physician dental assistant. She was discharged home and accompanied by family. She left the Emergency Department in a wheelchair and via private vehicle. Family member driving. --18:47 Josie Chavez. Locked/Released at 10/14/2016 18:47 by Josie Chavez,
--- NOTE | 2016-10-14 18:48 | ED MED RECONCILIATION SUMMARY ---
Patient: NICHOLAS KNOWLES Medication Reconciliation Report [facility] VisitID: [id number] [address] [place] [address] 81y, F Registration Date/Time: 10/14/2016 Weight: 49.8 kg Height/Length: 62 in. BMI: 20.1 ALLERGIES: No Known Drug Allergy The patient's Home Medications are listed below: THE FOLLOWING MEDICATIONS NEED TO BE RECONCILED: Donepezil HCl Oral Hydrocodone-Acetaminophen Oral Lisinopril Oral LORazepam Oral Omeprazole Oral Sertraline HCl Oral Simvastatin Oral The source(s) of the original Home Medication information: Not obtained. The following Medications were given to the patient in the Emergency Department: Dilaudid [IM] IM 1 mg, administered: 10/14/2016 5:40:00 PM Phenergan [IM] IM 12.5 mg, administered: 10/14/2016 5:40:00 PM The following Medications were prescribed to the patient: None.
--- NOTE | 2016-10-14 18:48 | ED DISCHARGE INSTRUCTIONS ---
Patient: NICHOLAS KNOWLES General Instructions [facility] VisitID: [id number] [place] [address] 81y, F Registration Date/Time: 10/14/2016 Chronic arthritis of the left hip. INSTRUCTIONS Apply ice. You may walk and bear weight as tolerated. Follow-up: Follow up with your doctor as needed. ADDITIONAL INFORMATION Arthralgia Arthralgia is the term for pain in or around the joint. It is not a disease but a symptom. This may involve one or more joints. Sometimes arthralgias move from joint to joint. There are many causes for joint pain. These include: Injury Osteoarthritis (from wearing out of the joint surface) Rheumatoid arthritis (an autoimmune disease) Gout (inflammation of the joint due to crystals in the joint fluid) Infection inside the joint Bursitis (inflammation of the fluid-filled sacs around the joint) Lupus and other collagen-vascular disease Home Care: Rest the involved joint(s) until your symptoms improve. You may use acetaminophen (Tylenol) or ibuprofen (Motrin, Advil) to control pain, unless another pain medicine was prescribed. [NOTE: If you have chronic liver or kidney disease or ever had a stomach ulcer or GI bleeding, talk with your doctor before using these medicines.] Follow Up with your doctor or as advised by our staff. [NOTE: If you had an X-ray it will be reviewed by a specialist. You will be notified of any new findings that may affect your care.] Return Promptly or contact your doctor if any of the following occurs: Pain increases Pain moves to other joints New rash appears Fever of 100.4F (38C) or higher, or as directed by your healthcare provider You have been given the following additional information: Arthralgia You may walk and bear weight as tolerated. (Electronically signed by Modesta Bonilla P.A.-C 10/14/2016 18:35)
--- NOTE | 2016-10-14 18:48 | ED MED RECONCILIATION SUMMARY ---
Patient: NICHOLAS KNOWLES Medication Reconciliation Report [facility] VisitID: [id number] [address] [place] [address] 81y, F Registration Date/Time: 10/14/2016 Weight: 49.8 kg Height/Length: 62 in. BMI: 20.1 ALLERGIES: No Known Drug Allergy The patient's Home Medications are listed below: THE FOLLOWING MEDICATIONS NEED TO BE RECONCILED: Donepezil HCl Oral Hydrocodone-Acetaminophen Oral Lisinopril Oral LORazepam Oral Omeprazole Oral Sertraline HCl Oral Simvastatin Oral The source(s) of the original Home Medication information: Not obtained. The following Medications were given to the patient in the Emergency Department: Dilaudid [IM] IM 1 mg, administered: 10/14/2016 5:40:00 PM Phenergan [IM] IM 12.5 mg, administered: 10/14/2016 5:40:00 PM The following Medications were prescribed to the patient: None.
--- NOTE | 2016-10-14 18:48 | ED MAR SUMMARY ---
..... Medication Administration Record [facility] [address] [place] [address] Patient: NICHOLAS KNOWLES Visit ID: [id number] 81y, F Weight: 49.8 kg Height/Length: 62 in BMI: 20.1 ALLERGIES: No Known Drug Allergy Given 17:10/14/2016 Josie Chavez, Medication Administered: DILAUDID [IM] (HYDROMORPHONE HCL PF), Dose: 1 mg IM. Medication Ordered: Dilaudid IM 1 mg (HIGH ALERT MEDICATION, NOW). Given :10/14/2016 Josie Chavez, Medication Administered: PHENERGAN [IM] (PROMETHAZINE HCL), Dose: 12.5 mg IM. Medication Ordered: Phenergan IM 12.5 mg (HIGH ALERT MEDICATION, NOW).
--- NOTE | 2016-10-14 18:48 | ED MAR SUMMARY ---
..... Medication Administration Record [facility] [address] [place] [address] Patient: NICHOLAS KNOWLES Visit ID: [id number] 81y, F Weight: 49.8 kg Height/Length: 62 in BMI: 20.1 ALLERGIES: No Known Drug Allergy Given 17:10/14/2016 Josie Chavez, Medication Administered: DILAUDID [IM] (HYDROMORPHONE HCL PF), Dose: 1 mg IM. Medication Ordered: Dilaudid IM 1 mg (HIGH ALERT MEDICATION, NOW). Given :10/14/2016 Josie Chavez, Medication Administered: PHENERGAN [IM] (PROMETHAZINE HCL), Dose: 12.5 mg IM. Medication Ordered: Phenergan IM 12.5 mg (HIGH ALERT MEDICATION, NOW).
--- NOTE | 2016-10-14 18:48 | ED DISCHARGE INSTRUCTIONS ---
Patient: NICHOLAS KNOWLES General Instructions [facility] VisitID: [id number] [place] [address] 81y, F Registration Date/Time: 10/14/2016 Chronic arthritis of the left hip. INSTRUCTIONS Apply ice. You may walk and bear weight as tolerated. Follow-up: Follow up with your doctor as needed. ADDITIONAL INFORMATION Arthralgia Arthralgia is the term for pain in or around the joint. It is not a disease but a symptom. This may involve one or more joints. Sometimes arthralgias move from joint to joint. There are many causes for joint pain. These include: Injury Osteoarthritis (from wearing out of the joint surface) Rheumatoid arthritis (an autoimmune disease) Gout (inflammation of the joint due to crystals in the joint fluid) Infection inside the joint Bursitis (inflammation of the fluid-filled sacs around the joint) Lupus and other collagen-vascular disease Home Care: Rest the involved joint(s) until your symptoms improve. You may use acetaminophen (Tylenol) or ibuprofen (Motrin, Advil) to control pain, unless another pain medicine was prescribed. [NOTE: If you have chronic liver or kidney disease or ever had a stomach ulcer or GI bleeding, talk with your doctor before using these medicines.] Follow Up with your doctor or as advised by our staff. [NOTE: If you had an X-ray it will be reviewed by a specialist. You will be notified of any new findings that may affect your care.] Return Promptly or contact your doctor if any of the following occurs: Pain increases Pain moves to other joints New rash appears Fever of 100.4F (38C) or higher, or as directed by your healthcare provider You have been given the following additional information: Arthralgia You may walk and bear weight as tolerated. (Electronically signed by Modesta Bonilla P.A.-C 10/14/2016 18:35)
== END 2016-10-14 18:48 | disposition home or self-care (01) ==
LOC: ED SRH 16:58
DX: M16.12 Unilateral primary osteoarthritis, left hip (principal); G89.29 Other chronic pain; Z96.642 Presence of left artificial hip joint; I10 Essential (primary) hypertension; K21.9 Gastro-esophageal reflux disease without esophagitis; Z79.899 Other long term (current) drug therapy